=== PATIENT | male | born 1995 | race Caucasian/White ===

== ENCOUNTER 2017-02-10 00:15 | Emergency (ER) | payer SELFPAY ==
[~2017-02-10 00:15] MED LIST: AUGMENTIN PO; NO MEDICATIONS; PHENERGAN W/CO120 ML PO; SINGULAIR PO
== END 2017-02-10 01:33 | disposition home or self-care (01) ==
LOC: CED 00:15
DX: Z04.3 Encounter for examination and observation following other accident (principal); F17.210 Nicotine dependence, cigarettes, uncomplicated
CPT/HCPCS: 99283